=== PATIENT | female | born 1975 | race Caucasian/White ===

== ENCOUNTER 2019-03-09 16:00 | Emergency (ER) | payer SELFPAY ==
[~2019-03-09] VITALS: Ht 162.6 cm; Wt 116.4 kg
[2019-03-09 16:05] VITALS: Ht 162.6 cm; Wt 116.4 kg
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
[2019-03-09] MEDS ORDERED: IBUP-1542 PO (17:17)
[2019-03-09] MEDS ORDERED: IBUPROFEN 600 MG TAB PO ONE (17:30)
[2019-03-09 18:06] VITALS: BP 119/67; PULSE 73; RESP 17
== END 2019-03-09 18:19 | disposition home or self-care (01) ==
LOC: E/R 16:00
DX: M79.604 Pain in right leg (principal); M79.605 Pain in left leg
CPT/HCPCS: 99282

== ENCOUNTER 2019-09-08 00:18 | Emergency (ER) | payer SELFPAY ==
[~2019-09-08] VITALS: Ht 160 cm; Wt 123.7 kg
[~2019-09-08 00:18] MED LIST: DICY10CA40 PO; FAMO-96 PO; IBUP-1542 PO; ONDA4TAB14 PO; ONDA4TAB8 PO; PHEN-537 PO
[2019-09-08 00:38] VITALS: BP 145/75; PULSE 72; RESP 16; Ht 160 cm; Wt 123.7 kg
== END 2019-09-08 03:28 | disposition home or self-care (01) ==
LOC: E/R 00:18
DX: J02.9 Acute pharyngitis, unspecified (principal)
CPT/HCPCS: 99282